=== PATIENT | female | born 1945 ===

== ENCOUNTER 2021-02-07 09:00 | Inpatient (IN) | payer OTHER ==
[~2021-02-07] VITALS: Ht 157.5 cm; Wt 83.9 kg
[~2021-02-07 09:00] MED LIST: NORFLEX100 MG PO; RELAFEN500 MG PO
[2021-02-14] MEDS ORDERED: [UNRECOGNIZED DRUG - OTHER] PO (09:27)
[2021-02-14] MEDS ORDERED: IBU400 MG PO (09:28)
[2021-02-14] MEDS ORDERED: FIORICET (10:00)
[2021-02-21] MEDS ORDERED: LOSARTAN POTASS25 MG (10:55)
[2021-02-21] MEDS ORDERED: LORAZEPAM0.5 MG (10:55)
[2021-02-21] MEDS ORDERED: ALENDRONATE SOD70 MG (10:55)
[2021-02-21] MEDS ORDERED: SIMVASTATIN20 MG (10:56)
[2021-02-21] MEDS ORDERED: OMEPRAZOLE20 MG (10:56)
[2021-02-21] MEDS ORDERED: TIZANIDINE HCL4 MG (10:56)
[2021-02-21] MEDS ORDERED: FAMOTIDINE40 MG (10:56)
[2021-02-21] MEDS ORDERED: BUTALB-ACETAMI1 EAC2 (10:57)
[2021-02-21] MEDS ORDERED: DOLOGESIC 500-1 EACH (10:57)
[2021-02-23] MEDS ORDERED: OXYC1TAB9 PO (06:07)
[2021-02-23] MEDS ORDERED: INTEGRA PLUS C1 EACH PO (06:07)
[2021-02-23] MEDS ORDERED: XARELTO10 MG PO (06:07)
[2021-02-23] MEDS ORDERED: BACTRIM DS TAB1 EACH PO (06:07)
== END 2021-02-23 21:57 | DRG 470 ==
LOC: SURG 02-21 06:17 → O/R 02-21 06:17 → SURG 02-21 09:00
PROVIDERS: ADMIT Orthopaedic Surgery Sports Medicine; ATTEND Orthopaedic Surgery Sports Medicine
PROC: 0SRC0J9 Replacement of Right Knee Joint with Synthetic Substitute, Cemented, Open Approach (ICD-10-PCS; principal; 2021-02-21 10:45)
DX: M17.11 Unilateral primary osteoarthritis, right knee (principal)

== ENCOUNTER 2021-10-03 10:15 | Day surgery (SDC) | payer OTHER ==
[~2021-10-03] VITALS: Ht 157.5 cm; Wt 83.9 kg
[~2021-10-03 10:15] MED LIST changes: +ALENDRONATE SOD70 MG; +BACLOFEN20 MG PO; +BACTRIM DS TAB1 EACH PO; +BUTALB-ACETAMI1 EAC2; +DOLOGESIC 500-1 EACH; +FAMOTIDINE40 MG; +FIORICET; +GLIPIZIDE XL5 MG PO; +IBU400 MG PO; +INTEGRA PLUS C1 EACH PO; +LORAZEPAM0.5 MG; +LOSARTAN POTASS25 MG; +METFORMIN HCL500 M3 PO; +OMEPRAZOLE20 MG; +OMEPRAZOLE40 MG PO; +OXYC1TAB9 PO; +SIMVASTATIN20 MG; +TIZANIDINE HCL4 MG; +XARELTO10 MG PO; +[UNRECOGNIZED DRUG - OTHER] PO
[2021-10-03] MEDS ORDERED: DUI500 PO (18:01)
[2021-10-03] MEDS ORDERED: OXYC1TAB9 PO (18:01)
== END 2021-10-03 22:05 | disposition home or self-care (01) ==
LOC: CIR.AMB 10:15
PROVIDERS: ATTEND Orthopaedic Surgery Sports Medicine
DX: M75.121 Complete rotator cuff tear or rupture of right shoulder, not specified as traumatic (principal); M75.21 Bicipital tendinitis, right shoulder; M24.111 Other articular cartilage disorders, right shoulder; M19.011 Primary osteoarthritis, right shoulder; Z20.822 Contact with and (suspected) exposure to COVID-19; I10 Essential (primary) hypertension; E11.9 Type 2 diabetes mellitus without complications; Z79.84 Long term (current) use of oral hypoglycemic drugs